=== PATIENT | male | born 1975 | race Caucasian/White ===

== ENCOUNTER 2016-10-29 12:41 | Emergency (ER) | payer MEDICAID ==
[~2016-10-29] VITALS: Ht 167.6 cm; Wt 69.6 kg
[~2016-10-29 12:41] MED LIST: MOTRIN800 MG PO; NORCO1 TA2 PO; ZOF4 PO
[2016-10-29 14:00] LABS: PLATELET COUNT 235 x10^3mcL (130-400); RED CELL DISTRIBUTION WIDTH 13.3 % (11.5-14.5)
[2016-10-29 14:01] LABS: UA SPECIFIC GRAVITY 1.015 (1.005-1.035); microscopic required? YES; urine erythrocyte NEGATIVE (NEGATIVE)
[2016-10-29 14:03] LABS: BASOPHIL % 0 % (0-2)
[2016-10-29 14:07] LABS: CALCIUM 9.3 mg/dL (8.5-10.1); CARBON DIOXIDE 28.7 mmol/L (21-32); CHLORIDE SERUM 102 mmol/L (98-107); CREATININE SERUM 0.9 mg/dL (0.7-1.3); GFR1 > 60 mL/min; GLUCOSE SERUM 134 mg/dL (74-106); POTASSIUM SERUM 3.8 mmol/L (3.5-5.1); SODIUM SERUM 139 mmol/L (136-145)
[2016-10-29 14:11] LABS: ALKALINE PHOSPHATASE 83 U/L (46-116); ALT/SGPT 26 U/L (16-63); AST/SGOT 4 U/L (15-37); BILIRUBIN TOTAL 0.62 mg/dL (0.20-1.00); LIPASE 108 IU/L (73-393); TOTAL PROTEIN, SERUM 8.2 g/dL (6.4-8.2)
[2016-10-29 16:33] VITALS: BP 105/66
== END 2016-10-29 16:33 | disposition home or self-care (01) ==
LOC: ED 12:41
PROVIDERS: Emergency Medicine
DX: R10.84 Generalized abdominal pain (principal); R11.10 Vomiting, unspecified; R19.7 Diarrhea, unspecified; K56.7 Ileus, unspecified; K92.1 Melena; R01.1 Cardiac murmur, unspecified
CPT/HCPCS: 83880; J2405; J7030; Q0092; Q9967